=== PATIENT | female | born 1980 | race Caucasian/White ===

== ENCOUNTER 2016-08-21 14:50 | Emergency (ER) | payer BC ==
[~2016-08-21] VITALS: Ht 157.5 cm; Wt 91.6 kg
[~2016-08-21 14:50] MED LIST: DILAUDID2 MG PO; KETOROLAC TROME10 MG PO; METFORMIN HCL500 M1 PO; PERCOCET 5/31 TABLET PO; TAMSULOSIN HCL0.4 MG PO; ZOFRAN ODT4 MG PO
[2016-08-21 15:34] LABS: HEMATOCRIT 38.5 % (36.0-46.0); MCHC 33.2 G/DL (30.0-36.0); MCV 90.4 FL (83-99); MEAN PLAT.VOLUME 10.4 uM^3 (9.5-12.4); PLATELET COUNT 209 K/uL (156-360); RBC DIS.WIDTH-SD 39.2 % (39-53); RED BLOOD COUNT 4.26 M/uL (3.80-5.20); WHITE BLOOD COUNT 7.7 K/uL (4.1-10.2)
[2016-08-21 15:59] LABS: ADD MIUA? YES; BILIRUBIN NEGATIVE; BLOOD LARGE; GLUCOSE (STRIP) NEGATIVE; KETONES TRACE; LEUKOCYTES SMALL; NITRITE NEGATIVE; PROTEIN (STRIP) 30; SPECIFIC GRAVITY 1.034 (1.000-1.030); UROBILINOGEN 0.2 MG/DL (0.2-1.0)
[2016-08-21 16:01] LABS: ANION GAP 11 MEQ/L (2-14); CHLORIDE 102 MEQ/L (99-109); SAMPLE HEMOLYSIS CHECK 0; SAMPLE ICTERIC CHECK 0; SAMPLE LIPEMIA CHECK 0; SODIUM 140 MEQ/L (136-147)
[2016-08-21 16:07] LABS: COLOR DK YELLOW ((YELLOW))
[2016-08-21 16:07] LABS: GFR ESTIMATE (CALCULATED) > 59 mL/min/; GLUCOSE 81 mg/dL (70-99); UREA NITROGEN (BUN) 13 mg/dL (9-23)
[2016-08-21 16:36] LABS: RED BLOOD CELLS TNTC /HPF (0-5)
[2016-08-21 16:37] LABS: WHITE BLOOD CELLS 0-5 /HPF (0-5)
[2016-08-21 16:38] LABS: BACTERIA 2+; CALCIUM OXALATE CRYSTALS 1+; CASTS NONE SEEN /LPF; CRYSTALS PRESENT; EPITHELIAL CELLS RARE; MUCUS RARE; UCUL ADDED? NO
[2016-08-21] MEDS ORDERED: PERCOCET 5/31 TABLET PO (17:25)
[2016-08-21 18:05] VITALS: BP 117/71
== END 2016-08-21 18:07 | disposition home or self-care (01) ==
LOC: EME 14:50
DX: N23 Unspecified renal colic (principal); F17.200 Nicotine dependence, unspecified, uncomplicated; Z87.442 Personal history of urinary calculi
CPT/HCPCS: 80048; 81003; 85027; 99281; 99285; J1885; J2270; J2405